=== PATIENT | male | born 1945 | race Caucasian/White ===

== ENCOUNTER 2024-01-14 09:44 | Emergency (ER) | payer MEDICARE, BC ==
[~2024-01-14] VITALS: Ht 175.3 cm; Wt 74.3 kg
[2024-01-14 09:54] VITALS: TEMP 98.2
[2024-01-14 10:55] LABS: BASOPHILS % (AUTO) 0.2 % (0-1); EOSINOPHILS % (AUTO) 0.3 % (0-6); HEMATOCRIT 33.6 % (42.0-52.0); HEMOGLOBIN 11.1 g/dl (14.0-17.9); LYMPHOCYTES # (AUTO) 0.8 X10'3 (1.1-4.8); MEAN CORPUSCULAR HEMOGLOBIN 32.8 PG (27.0-31.0); MEAN CORPUSCULAR HGB CONC 33.2 g/dL (33.0-36.5); MONOCYTES # (AUTO) 0.5 X10'3 (0-0.9); MONOCYTES % (AUTO) 7.2 % (2-12); NEUTROPHILS # (AUTO) 5.7 X10'3 (1.8-7.7); NEUTROPHILS % (AUTO) 81.3 % (42-75); PLATELET COUNT 136 X10'3 (140-440); RED BLOOD COUNT 3.39 X10'6 (4.70-6.10); RED CELL DISTRIBUTION WIDTH 13.8 % (11.5-14.5)
[2024-01-14 11:15] LABS: ALBUMIN 3.9 G/DL (3.4-5.0); ANION GAP 11 (8-16); BLOOD UREA NITROGEN 29 MG/DL (7-18); BUN/CREATININE RATIO 23.8 (10.0-20.0); CALCIUM 9.3 MG/DL (8.5-10.1); CHLORIDE 102 MMOL/L (99-107); CREATININE 1.22 MG/DL (0.60-1.10); GLUCOSE 201 MG/DL (70-104); POTASSIUM 4.2 MMOL/L (3.5-5.1); PRO BRAIN NATRIURETIC PEPTIDE 224 PG/ML (0-450); SODIUM 136 MMOL/L (135-145); TOTAL CARBON DIOXIDE 23.5 MMOL/L (24-32); eCRCL 49 ML/MIN; eGFR 57 ML/MIN
[2024-01-14 11:57] VITALS: BP 120/75; PULSE 106; RESP 16; O2SAT 95
== END 2024-01-14 12:00 | disposition home or self-care (01) ==
LOC: ER 09:44
DX: U07.1 COVID-19 (principal)
CPT/HCPCS: 36415; 71045; 80048; 83880; 85025; 87502; 87503; 87811; 99284